=== PATIENT | male | born 1995 | race Caucasian/White ===

== ENCOUNTER 2017-08-03 22:01 | Emergency (ER) | payer OTHER ==
[~2017-08-03] VITALS: Ht 167.6 cm; Wt 90.7 kg
[~2017-08-03 22:01] MED LIST: HYDROCODONE-AP1 EAC6 PO; NORCO 5-325 TA1 EACH PO; PENICILLIN VK500 M1 PO
[2017-08-03 22:06] VITALS: BP 147/82
== END 2017-08-04 00:19 | disposition left against medical advice (07) ==
LOC: ER 22:01
DX: S39.012A Strain of muscle, fascia and tendon of lower back, initial encounter (principal); F17.210 Nicotine dependence, cigarettes, uncomplicated; F10.99 Alcohol use, unspecified with unspecified alcohol-induced disorder; Z88.6 Allergy status to analgesic agent; V89.2XXA Person injured in unspecified motor-vehicle accident, traffic, initial encounter; Y93.I9 Activity, other involving external motion; Y92.89 Other specified places as the place of occurrence of the external cause; Y99.8 Other external cause status

== ENCOUNTER 2018-08-11 09:07 | Emergency (ER) | payer OTHER ==
[~2018-08-11] VITALS: Ht 165.1 cm; Wt 90.7 kg
[2018-08-11] MEDS ORDERED: KEFLEX500 M1 PO (11:30)
[2018-08-11] MEDS ORDERED: NORCO 5-325 TA1 EACH PO (11:30)
[2018-08-11 11:42] VITALS: BP 134/91
== END 2018-08-11 11:43 | disposition home or self-care (01) ==
LOC: ER 09:07
DX: S62.316A Displaced fracture of base of fifth metacarpal bone, right hand, initial encounter for closed fracture (principal); S61.412A Laceration without foreign body of left hand, initial encounter; W31.89XA Contact with other specified machinery, initial encounter; Y93.89 Activity, other specified; Y92.89 Other specified places as the place of occurrence of the external cause; Y99.8 Other external cause status; F17.210 Nicotine dependence, cigarettes, uncomplicated; Z88.5 Allergy status to narcotic agent

== ENCOUNTER 2018-08-15 18:06 | Emergency (ER) | payer OTHER ==
[~2018-08-15] VITALS: Ht 165.1 cm; Wt 90.7 kg
[~2018-08-15 18:06] MED LIST changes: +KEFLEX500 M1 PO
[2018-08-15] MEDS ORDERED: NORCO 5-325 TA1 EACH PO (19:03)
[2018-08-15 19:46] VITALS: BP 130/80
== END 2018-08-15 19:47 | disposition home or self-care (01) ==
LOC: ER 18:06
DX: S62.306A Unspecified fracture of fifth metacarpal bone, right hand, initial encounter for closed fracture (principal); S66.325A Laceration of extensor muscle, fascia and tendon of left ring finger at wrist and hand level, initial encounter; F17.210 Nicotine dependence, cigarettes, uncomplicated; Z88.6 Allergy status to analgesic agent; Z88.8 Allergy status to other drugs, medicaments and biological substances; X58.XXXA Exposure to other specified factors, initial encounter; Y92.89 Other specified places as the place of occurrence of the external cause; Y99.0 Civilian activity done for income or pay